=== PATIENT | male | born 1945 | race Caucasian/White ===

== ENCOUNTER 2017-09-13 08:26 | Outpatient (CLI) | payer MEDICARE, BC ==
--- NOTE | 2017-09-13 10:29 | RAD ---
KUB: Date: 09/13/17 HISTORY: Renal stones. FINDINGS: There are calculi in the kidneys bilaterally, greater in number on the left. The bowel gas pattern i s unremarkable. There are degenerative changes in the spine. There are pelvic phleboliths, which wer e also seen on 01/18/06. Calcific density in the projection of the left transverse process of L3 blake tebra may represent a ureteral calculus. IMPRESSION: 1. Bilateral renal calculi. 2. Probable left ureteral calculus. POS: [facility]
== END 2017-09-13 08:27 | disposition home or self-care (01) ==
LOC: RAD 08:26
PROVIDERS: ATTEND Urology
DX: N20.0 Calculus of kidney (principal)
CPT/HCPCS: 74000

== ENCOUNTER 2018-05-11 19:10 | Emergency (ER) | payer MEDICARE, BC ==
[2018-05-11] MEDS ORDERED: Ketorolac Tromethamine 30 MG/ML VIAL ONE (19:29)
[2018-05-11 19:44] LABS: Bilirubin Negative (Negative); Blood, Urine Small (Negative); Clarity CLEAR (Clear); Glucose, Urine (Dipstick) Negative (Negative); Leukocyte Negative (Negative); Nitrite Negative (Negative); Protein, Urine (Dipstick) 30 mg/dL (Neg-Trace); Specific Gravity, Urine 1.024 (1.002-1.036); Urobilinogen 0.2 mg/dL (0.2-1.0); pH, Urine 5.5 (5.0-9.0)
[2018-05-11 19:46] LABS: Bacteria/HPF None Seen HPF (None Seen); Hyaline Casts/LPF 0-3 HYALINE CAST LPF (0-3 Hyaline); Pathc Cast-AUWi Flag 0.14 (0-2.49); Squamous Epithelial 0-3 HPF (0-3); WBC/HPF 0-3 HPF (0-3)
[2018-05-11 19:47] LABS: #Basophils 0.1 thou/uL (0.0-0.2); #Monocytes 0.4 thou/uL (0.11-0.59); #Neutrophils 11.1 thou/uL (1.40-6.50); %Basophils 0.5 % (0.0-1.0); %Eosinophils 0.1 % (0.0-10.0); %Lymphocytes 7.6 % (21.0-51.0); %Neutrophils 88.8 % (42.0-75.0); Hemoglobin 13.4 g/dL (14.0-18.0); Mean Corpuscular HGB CONC 33.1 g/dL (32.0-36.0); Mean Corpuscular Hemoglobin 31.3 pg (27.0-31.0); Mean Corpuscular Volume 94.6 fL (78.0-98.0); Mean Platelet Volume 7.1 fL (7.4-10.4); Platelet Count 190 thou/uL (130-400); RBC Distribution Width 12.6 % (11.5-14.5); Red Blood Cell (RBC) Count 4.29 mill/uL (4.70-6.10); White Blood Cell (WBC) Count 12.5 thou/uL (4.8-10.8)
[2018-05-11 19:48] LABS: Yeast-AUWi Flag 43.7 (0-25.0)
[2018-05-11 19:56] LABS: Yeast-All Forms None Seen HPF (None Seen)
[2018-05-11 20:09] LABS: ALT (SGPT) 24 U/L (8-55); AST (SGOT) 23 U/L (5-34); Albumin 4.6 g/dL (3.4-4.8); Alkaline Phosphatase 67 U/L (40-150); Anion Gap 15 mmol/L (10-20); BUN (Urea Nitrogen) 23 mg/dL (8.4-25.7); Bilirubin, Total 0.4 mg/dL (0.2-1.2); Calc. Creatinine Clearance 0 mL/min (70-130); Calcium 9.6 mg/dL (7.8-10.44); Carbon Dioxide 25 mmol/L (23-31); Chloride 106 mmol/L (98-107); Estimated GFR-MDRD 51; Globulin 2.8 g/dL (2.4-3.5); Glucose 166 mg/dL (83-110); Lipase 18 U/L (8-78); Protein, Total 7.4 g/dL (5.8-8.1); Sodium 142 mmol/L (136-145)
--- NOTE | 2018-05-11 20:58 | CT ---
CT ABDOMEN AND PELVIS WITHOUT CONTRAST: History: Right flank pain, kidney stones. FINDINGS: Comparison made with exam of 01-05-14. Absence of oral and IV contrast limits the sensitivity of the exam for solid organs and bowel. The lung bases are unremarkable. No free air or free fluid is seen in the abdomen or pelvis. No calci fied gallstones are seen. Cysts in the liver are again noted. A small fat containing umbilical hernia is stable. Chronic diverticulosis is again seen. There are bilaterally renal calculi, the largest on the right measuring 5 mm and largest on the left measuring 6 mm. There is right sided hydroureteronephrosis with right perinephric inflammatory change s secondary to an obstructing 5 mm calculus in the right ureter at the L4 level. No left sided hydrou reteronephrosis is seen. No calculi are seen in the urinary bladder. The prostate is enlarged. There are vascular calcifications without evidence of aneurysmal dilatation of the abdominal aorta. D egenerative changes are present in the spine. Small bilateral fat containing inguinal hernia present. IMPRESSION: 1. Obstructing 5 mm right ureteral calculus at the L4 level. 2. Bilateral renal calculi. 3. Colonic diverticulosis. 4. Hepatic cysts. 5. Prostatic enlargement. POS: [facility]
== END 2018-05-11 21:35 | disposition home or self-care (01) ==
LOC: ERS 19:10
DX: N13.2 Hydronephrosis with renal and ureteral calculous obstruction (principal); E78.5 Hyperlipidemia, unspecified; Z79.899 Other long term (current) drug therapy; Z79.84 Long term (current) use of oral hypoglycemic drugs
CPT/HCPCS: 74176; 80053; 81003; 81015; 83690; 85025; 96361; 96374; 96375; J1885; J2270

== ENCOUNTER 2018-05-19 13:37 | Outpatient (CLI) | payer MEDICARE, BC ==
[2018-05-19 16:02] LABS: Anion Gap 15 mmol/L (10-20); BUN (Urea Nitrogen) 26 mg/dL (8.4-25.7); Calc. Creatinine Clearance 0 mL/min (70-130); Calcium 9.5 mg/dL (7.8-10.44); Carbon Dioxide 27 mmol/L (23-31); Chloride 100 mmol/L (98-107); Estimated GFR-MDRD 41; Glucose 89 mg/dL (83-110); Potassium 4.7 mmol/L (3.5-5.1); Sodium 137 mmol/L (136-145)
== END 2018-05-19 13:38 | disposition home or self-care (01) ==
LOC: LABBT 13:37
PROVIDERS: ATTEND Urology
DX: Z01.818 Encounter for other preprocedural examination (principal); N20.1 Calculus of ureter
CPT/HCPCS: 80048; 81001; 93005; 93010

== ENCOUNTER 2018-05-27 07:06 | Day surgery (SDC) | payer MEDICARE, BC ==
[2018-05-19 13:52] VITALS: BMI 27.2
[2018-05-27] MEDS ORDERED: Iothalamate Meglumine 60% 50 ML VIAL FS ONE (07:12)
[2018-05-27] MEDS ORDERED: B & O ONE (07:13)
[2018-05-27] MEDS ORDERED: Furosemide 20 MG/2 ML VIAL ONE ×2 (07:13→08:40)
[2018-05-27] MEDS ORDERED: Sodium Chloride 0.9% 100 ML ONE (07:14)
[2018-05-27] MEDS ORDERED: CEFAZOLIN 1 GM VIAL ONE (07:14)
[2018-05-27] MEDS ORDERED: Fentanyl 100 MCG/2 ML VIAL ONE (07:35)
--- NOTE | 2018-05-27 08:36 | RAD ---
KUB: Date: 05/27/18 INDICATION: Preop evaluation. COMPARISON: Prior KUB dated 09/13/[address] stone protocol dated 05/11/18. FINDINGS: No suspicious stone is seen along the expected course of the renal collecting system. The previously noted 4.9 mm stone involving the mid right ureter on the CT evaluation from 05/11/18 is no longer jerri ntified. Small punctate nonobstructing calculi overlie the right renal shadow. 5.8 mm calculus overly ing the region of the superior pole of the left kidney is stable. Small phleboliths are seen within t he lower pelvis. Bowel gas pattern is unobstructed. There is multilevel spondylosis of the lumbar spi ne. IMPRESSION: 1. Stone seen within the region of the right mid ureter on the comparison CT evaluation of 05/11/18 is no longer identified along the expected course of the right renal collecting system. 2. Stable bilateral nephrolithiasis. POS: [facility]
--- NOTE | 2018-05-27 11:13 | OP ---
DATE OF PROCEDURE: 05/27/2018 PREOPERATIVE DIAGNOSES: Presumed passed right ureteral stone and left renal stone. POSTOPERATIVE DIAGNOSES: Presumed passed right ureteral stone and left renal stone. PROCEDURE: Cystoscopy, right retrograde pyelogram, removal of stone in bladder and extracorporeal sh ock wave lithotripsy on the left. SURGEON: Haley Harris M.D. ANESTHESIA: General laryngeal mask airway. FINDINGS: Adequate fragmentation of the left renal stone and removal of a bladder stone that presuma alphonso had recently passed from the right. SPECIMENS: Stone from the bladder, presumably from the right ureter. ESTIMATED BLOOD LOSS: None. COMPLICATIONS: None. DRAIN REMAINING: None. COMPLICATIONS: No complications. INDICATIONS: The patient is a 73-year-old male seen in the office with an obstructing almost 1 cm ur eteral stone. He was set up for definitive therapy if he was unable to pass it. He also had a left stone that we can handle at the same time. Two days prior to the anticipated procedure, the patient had more pain and blood and presumably passe d his stone, but he did not see or collect it so we discussed ensuring that the right side was clear before proceeding with the left. PROCEDURE IN DETAIL: The patient was brought into the room by Anesthesia, laid on the table in supin e position. After receiving general anesthetic his legs placed in lithotomy position. His perineum was prepped and draped in sterile fashion. Using a 22-Kiswahili cystoscope and 30 degree lens the ureth ra was traversed and the bladder inspected. The stone was noted and extracted and sent for specimen. The right ureteral orifice appeared edematous consistent with recent stone passage. I did a retrog rade pyelogram to ensure no other obstructing fragments of the stone was listed previously at a centi meter by CT and it only appeared to be 6-7 mm by inspection. The retrograde pyelogram revealed a nor mal unit, but drained immediately and so at this point, the scope was broken apart, bladder drained a nd removed in its entirety and the patient was transferred to the ESWL suite. He was laid supine and then a total of 2500 shocks at a maximum power of 5-6 at a maximum rate of 60- 90 per minute were then delivered to the left 8 mm mid upper pole stone. Good fragmentation was note d. The patient tolerated the procedure well and was then awakened and transferred to PACU in stable condition.
[2018-05-27] MEDS ORDERED: ePHEDrine/0.9% NaCl/PF SYRINGE 50 mg/10 ml ONE (12:50)
[2018-05-27] MEDS ORDERED: Metoclopramide HCl 10 MG/2 ML VIAL ONE (12:50)
[2018-05-27] MEDS ORDERED: PHENYLEPHRINE-NS 100 MCG/ML 10 ML SYRINGE ONE (12:50)
[2018-05-27] MEDS ORDERED: PROPOFOL 200 MG/20 ML VIAL ONE (12:50)
[2018-05-27] MEDS ORDERED: Ondansetron HCl/PF 4 MG/2 ML Vial ONE (12:50)
[2018-05-27] MEDS ORDERED: Lidocaine 1% PF 5 ML VIAL ONE (12:50)
[2018-05-30 10:23] LABS: CA Oxalate Monohydrate 97 % (.); Color Brown (.); Stone Weight 16.1 mg (.)
== END 2018-05-27 11:06 | disposition home or self-care (01) ==
LOC: SDC 07:06
PROVIDERS: ATTEND Urology
PROC: 0TF4XZZ Fragmentation in Left Kidney Pelvis, External Approach (ICD-10-PCS; principal; 2018-05-27)
PROC: 0TCB8ZZ Extirpation of Matter from Bladder, Via Natural or Artificial Opening Endoscopic (ICD-10-PCS; 2018-05-27)
DX: N20.0 Calculus of kidney (principal); N21.0 Calculus in bladder; E78.00 Pure hypercholesterolemia, unspecified; E11.9 Type 2 diabetes mellitus without complications; K21.9 Gastro-esophageal reflux disease without esophagitis; N40.1 Benign prostatic hyperplasia with lower urinary tract symptoms; R39.14 Feeling of incomplete bladder emptying; Z87.442 Personal history of urinary calculi; Z87.440 Personal history of urinary (tract) infections; Z79.84 Long term (current) use of oral hypoglycemic drugs; Z79.82 Long term (current) use of aspirin; Z79.51 Long term (current) use of inhaled steroids; Z79.899 Other long term (current) drug therapy; Z91.048 Other nonmedicinal substance allergy status
CPT/HCPCS: 50590; 52310; 74018; 76000; 82365; 88300; C1758; J0690; J1940; J2001; J2405; J2704; J2765; J3010; J7050; Q9961

== ENCOUNTER 2018-06-25 09:42 | Outpatient (CLI) | payer MEDICARE, BC ==
--- NOTE | 2018-06-25 10:34 | RAD ---
AP VIEW ABDOMEN: 06/25/2018 HISTORY: Renal calculus. COMPARISON: 05/27/2018 FINDINGS: The right and left renal calculi are difficult to visualize on this plain film radiograph. Numerous pelvic phleboliths are seen. The recently visualized mid left renal calculus, seen on 05/27/2018, is not visible on today's exam. IMPRESSION: 1. Moderate amount of stool in place. 2. Renal calculi, not definitively visualized. 3. Numerous pelvic phleboliths. POS: [facility]
== END 2018-06-25 09:43 | disposition home or self-care (01) ==
LOC: RAD 09:42
PROVIDERS: ATTEND Urology
DX: N20.0 Calculus of kidney (principal); K59.00 Constipation, unspecified; I87.8 Other specified disorders of veins
CPT/HCPCS: 74018

== ENCOUNTER 2019-11-05 09:32 | Outpatient (CLI) | payer MEDICARE, BC ==
--- NOTE | 2019-11-05 11:43 | RAD ---
ABDOMEN 1 VIEW: Date: 11/05/19 HISTORY: Screening, PSA, history of prior renal calculi. COMPARISON: 06/25/18. FINDINGS: There appear to be very tiny opacities overlying the kidneys concerning for very small, nonobstructin g renal calculi. Multiple phleboliths in the pelvis, stable. No bowel obstruction or other acute proc ess. IMPRESSION: Probable very tiny bilateral nonobstructing renal calculi. POS: [facility]
== END 2019-11-05 09:33 | disposition home or self-care (01) ==
LOC: BICRAD 09:32
PROVIDERS: ATTEND Urology
DX: Z12.5 Encounter for screening for malignant neoplasm of prostate (principal)
CPT/HCPCS: 74018

== ENCOUNTER 2020-11-14 07:09 | Outpatient (CLI) | payer MEDICARE, BC ==
--- NOTE | 2020-11-14 08:13 | RAD ---
XR Abdomen 1 View/KUB History: Kidney stones Comparison: Radiograph November 05, 2019 Findings: Punctate calculi project over the left and right renal collecting systems. No abnormal calc ification projecting over the expected location of the ureters. Bilateral pelvic phleboliths. No acute osseous abnormality. Impression: Punctate bilateral renal calculi.
== END 2020-11-14 07:10 | disposition home or self-care (01) ==
LOC: BICRAD 07:09
PROVIDERS: ATTEND Urology
DX: N20.0 Calculus of kidney (principal); Z12.5 Encounter for screening for malignant neoplasm of prostate
CPT/HCPCS: 74018; G0103; 36415

== ENCOUNTER 2022-06-04 07:26 | Outpatient (CLI) | payer MEDICARE, BC ==
[2022-06-04] MEDS ORDERED: Iopamidol-370 76% 500 ML 1 ML ONE (11:25)
== END 2022-06-04 07:27 | disposition home or self-care (01) ==
LOC: BICCT 07:26
PROVIDERS: ATTEND Family Medicine
DX: R10.9 Unspecified abdominal pain (principal); K76.89 Other specified diseases of liver; K57.30 Diverticulosis of large intestine without perforation or abscess without bleeding; N20.0 Calculus of kidney; Z86.018 Personal history of other benign neoplasm
CPT/HCPCS: 74178; 82565; Q9967

== ENCOUNTER 2023-10-24 12:52 | Outpatient (CLI) | payer MEDICARE | END 2023-10-24 12:53 | disposition home or self-care (01) | LOC: LABBT 12:52 | PROVIDERS: ATTEND Urology | DX: Z01.810 Encounter for preprocedural cardiovascular examination (principal) | CPT/HCPCS: 80048; 81001; 85027; 85610; 85730; 86850; 86900; 86901; 87077; 87086; 87186; 93005; 93010 ==